=== PATIENT | female | born 1965 | race Caucasian/White ===

== ENCOUNTER → 2019-05-03 | Outpatient (CLI) | payer MEDICARE, MEDICAID ==
[~2019-05-03] MED LIST: AMLO10TA80 PO; ASPI-1073 PO; CINA90TA PO; DIPHEN/ATROP PO; HYDR-4135 PO; IRBE300T42 PO; OMEP20CA5 PO; RAMI10CA19 PO; SEVE800T8 PO; VITA1TAB10 PO
== END | disposition home or self-care (01) ==
LOC: PVL 09:37
PROVIDERS: ATTEND Internal Medicine Nephrology
DX: I73.9 Peripheral vascular disease, unspecified (principal)
CPT/HCPCS: 93923

== ENCOUNTER → 2020-04-24 | Outpatient (CLI) | payer MEDICARE, MEDICAID ==
[~2020-04-24] MED LIST changes: +OMEP20CA14 PO; -OMEP20CA5 PO; -RAMI10CA19 PO; +RAMI10CA68 PO
== END | disposition home or self-care (01) ==
LOC: NM 08:49
PROVIDERS: ATTEND Internal Medicine Nephrology
DX: E83.52 Hypercalcemia (principal)
CPT/HCPCS: 78070; A9500